=== PATIENT | female | born 1975 | race Two or more races ===

== ENCOUNTER → 2022-08-28 | Outpatient (CLI) | payer OTHER, SELFPAY ==
--- NOTE | 2022-08-28 14:35 | LIP_PTH ---
PATIENT: ESTHER RAYMUNDO LOC: [facility] U#:[id number] AGE/SX: 46/F ROOM: RE08/28/[address]: Dr. Modesto Boogie MD : 1975 BED: DIS: 08/28/2022 SPEC #: [id number] RECD: 08/28/22 16:27 STATUS: SULY HAILEY #: [id number] CODEY: 08/28/22 14:[address]: Mod[place] Boogie DEPT: SURGICAL PATHOLOGY RECD BY: Cintia Sparks Tissues: Soft tissues, NOS Procedures: Surgery Specimen Level III HEADER OPERATION: Excision of right parietal skull lipoma PRE-OP DIAGNOSIS: Lipoma of right parietal scalp TISSUE SUBMITTED: Right parietal scalp lipoma MICROSCOPIC DIAGNOSIS Right parietal scalp lipoma, excision: Mature adipose tissue consistent with lipoma. LESLEY:annemarie 08/30/2022 MICROSCOPIC DESCRIPTION Slides are reviewed. GROSS DESCRIPTION Received in fixative is one container labeled with the patient's name and designated right parietal scalp lipoma. The specimen consists of an irregular piece of yellow adipose tissue measuring 2.2 x 2.5 x 1.0 cm. The specimen is bisected and submitted entirely in one cassette. / SJ:rg 08/29/2022 TC:1 CPT: 47394
== END | disposition home or self-care (01) ==
LOC: LABSPEC 16:36
PROVIDERS: Referring Provider Surgery; Visit Provider Surgery
DX: D17.39 Benign lipomatous neoplasm of skin and subcutaneous tissue of other sites (principal)
CPT/HCPCS: 88304